=== PATIENT | female | born 1995 | race Caucasian/White ===

== ENCOUNTER 2021-09-11 10:56 | Outpatient (CLI) | payer BC, SELFPAY ==
[2021-09-11 13:15] LABS: Chlamydia DNA Amplified* NOT DETECTED (No Detected); GC DNA Amplified* NOT DETECTED (No Detected)
== END 2021-09-11 10:57 | disposition home or self-care (01) ==
PROVIDERS: Visit Provider Obstetrics & Gynecology
DX: Z34.91 Encounter for supervision of normal pregnancy, unspecified, first trimester (principal); Z3A.11 11 weeks gestation of pregnancy
CPT/HCPCS: 87491; 87591

== ENCOUNTER 2021-11-13 13:45 | Outpatient (CLI) | payer BC, SELFPAY ==
--- NOTE | 2021-11-13 14:00 | CRLHL7_ITS ---
For Patients: As a result of the Century Cures Act, medical imaging exams and procedure reports are released immediately into your electronic medical record. You may view this report before your referring provider. If you have questions, please contact your health care provider. INDICATION: Evaluate anatomy. COMPARISON: 03.15.21 TECHNIQUE: Real time canseco scale imaging of the fetus was performed as well as color Doppler analysis of the umbilical vessels. FINDINGS: Sonographic imaging demonstrates a single living intrauterine gestation. Fetus demonstrates a regular cardiac rate of 171 beats per minute. Fetus has a transverse position, head maternal left. The placenta lies anteriorly without evidence of placenta previa. The edge of the placenta is located 8.8 cm from the internal cervical os. Amniotic fluid volume appears normal. Single deepest vertical pocket: 5.2 cm. The cervix is closed and measures 5.3 cm in length. The composite ultrasound gestational age is calculated at 20 weeks 5 days with an estimated sonographic due date of 03/28/2022. The estimated weight is 401 grams which lies at the 88th %. The following biometric measurements were obtained: Biparietal diameter: 4 point a cm/20 weeks 3 days 58th% Head circumference: 18.3 cm/20 weeks 5 days 61st% Abdominal circumference: 16.0 cm/21 weeks 1 day 70th% Femur length: 3.6 cm/21 weeks 3 days 78th% The HC/AC ratio measures: 1.15 range (1.06-1.25) On anatomic survey, there is a normal appearance of the cerebral ventricles, cavum septi pellucidi, cisterna magna and cerebellum. The nose, lips, and facial profile appear normal. The cervical, thoracic and lumbar spine are well visualized and appear normal. The four-chamber heart view and the left and right ventricular outflow tracts are not well visualized. The diaphragm and stomach appear normal. The kidneys and bladder also appear normal. There is a normal three-vessel cord and cord insertion site. The four extremities appear normal. IMPRESSION: Incomplete visualization of the heart. Short-term follow-up recommended. Remainder of the anatomic survey is normal. Good correlation with dates. Dictated by Twan Mcghee MD @ 11/13/2021 4:10:53 PM (Electronically Signed)
== END 2021-11-13 13:46 | disposition home or self-care (01) ==
LOC: US 13:46
PROVIDERS: Visit Provider Obstetrics & Gynecology
DX: Z34.92 Encounter for supervision of normal pregnancy, unspecified, second trimester (principal); Z3A.20 20 weeks gestation of pregnancy
CPT/HCPCS: 76805

== ENCOUNTER 2021-11-27 10:06 | Outpatient (CLI) | payer BC, SELFPAY ==
--- NOTE | 2021-11-27 10:15 | CRLHL7_ITS ---
For Patients: As a result of the Century Cures Act, medical imaging exams and procedure reports are released immediately into your electronic medical record. You may view this report before your referring provider. If you have questions, please contact your health care provider. INDICATION: f/u heart views not seen on previous exam due to position COMPARISON: 11/13/2021 TECHNIQUE: Real time canseco scale imaging of the fetus was performed. FINDINGS: Sonographic imaging demonstrates a single living intrauterine gestation. Fetus demonstrates a regular cardiac rate of 148 beats per minute. Fetus has a vertex position. The placenta lies anteriorly. Amniotic fluid volume appears normal. Single deepest vertical pocket: 7.5 cm. There is a normal four-chamber heart view and the left and right ventricular outflow tracts appear normal. IMPRESSION: Normal heart views. Dictated by Twan Mcghee MD @ 11/27/2021 12:47:11 PM (Electronically Signed)
== END 2021-11-27 10:07 | disposition home or self-care (01) ==
LOC: US 10:07
PROVIDERS: Visit Provider Obstetrics & Gynecology
DX: Z34.90 Encounter for supervision of normal pregnancy, unspecified, unspecified trimester (principal)
CPT/HCPCS: 76815

== ENCOUNTER 2022-01-08 12:53 | Outpatient (CLI) | payer BC, SELFPAY ==
[2022-01-09 20:26] LABS: Rapid Plasma Reagin (RPR) Non Reactive (Non Reactive)
== END 2022-01-08 12:54 | disposition home or self-care (01) ==
PROVIDERS: Visit Provider Obstetrics & Gynecology
DX: Z34.93 Encounter for supervision of normal pregnancy, unspecified, third trimester (principal); Z3A.28 28 weeks gestation of pregnancy
CPT/HCPCS: 86592

== ENCOUNTER 2022-01-15 14:04 | Outpatient (CLI) | payer BC, SELFPAY ==
[2022-01-15 07:54] LABS: Glucose Fasting Check 92 mg/dl (60-115)
[2022-01-15 12:12] LABS: Glucose GTT-Gestational 3 Hr 67 mg/dl (70-140)
[2022-01-15 12:12] LABS: Glucose 1 Hour Gest 207 mg/dl (70-180)
== END 2022-01-15 14:05 | disposition home or self-care (01) ==
PROVIDERS: Visit Provider Obstetrics & Gynecology
DX: Z34.83 Encounter for supervision of other normal pregnancy, third trimester (principal); Z3A.30 30 weeks gestation of pregnancy
CPT/HCPCS: 82951; 82952

== ENCOUNTER 2022-03-05 09:55 | Outpatient (CLI) | payer BC, SELFPAY ==
[2022-03-06 16:15] LABS: Strep B DNA Probe NEGATIVE (Negative)
[2022-03-06 17:05] LABS: Strep B Pen/Amox Allergy No
== END 2022-03-05 09:56 | disposition home or self-care (01) ==
PROVIDERS: Visit Provider Obstetrics & Gynecology
DX: O36.63X0 Maternal care for excessive fetal growth, third trimester, not applicable or unspecified (principal); Z3A.36 36 weeks gestation of pregnancy
CPT/HCPCS: 76816; 87081; 87653

== ENCOUNTER 2022-03-29 17:16 | Inpatient (IN) | payer BC, SELFPAY ==
[2022-03-29] VITALS (23 sets, daily range): BP systolic 116–138; BP diastolic 54–88; PULSE 62–103; TEMP 36.4–36.8; O2SAT 97–100; BMI 38.4
[2022-03-29 18:43] LABS: SARS PCR* Negative SARS-CoV-2 (Negative)
--- NOTE | 2022-03-29 21:03 | PM.OBHPLI ---
OB - H&P: HPI Labor/Induction History of Present Illness Time Seen by Provider: 18:30 Date Seen: 03/29/22 Chief Complaint: LOF Chief complaint: Maternity Narrative: Fabi Loya is a 26 year old female G1 who presents to labor and delivery due to gross ROM. Her water broke and 4pm and she's regularly areli every 3-4 minutes. Patient is in spontaneous labor. + movements. Denies vaginal bleeding. Please review H&P by Dr. Syed on 03/11 for full history. Review of Systems Status of ROS: Reports: 10 or more systems reviewed and unremarkable except as noted in History and below Meds Home Medications and Allergies Home Medications Medication Instructions Recorded Confirmed Type 103-folic acid 400 tab PO 10/09/21 03/29/22 History mcg-omeg3 32.5 mg-dha-fish oil chew tablet ( with DHA and Folic Acid) aspirin 81 mg chewable tablet 81 mg PO QDAY 12/11/21 03/29/22 History Allergies Allergy/AdvReac Type Severity Reaction Status Date / Time No Known Allergies Allergy Unknown Verified 03/29/22 09:32 OB - H&P: Exam Physical Exam: Vital signs: Temp Pulse BP 97.7 F 62 136/84 03/29/22 20:30 03/29/22 19:14 03/29/22 19:14 Narrative: Physical exam: General: Wincing and breathing through contractions Psych: Alert and oriented x3, full affect HEENT: Normocephalic, atraumatic Abdomen: Gravid, soft, no tenderness, rebound, or guarding in between contractions. Lower extremities: No edema or erythema Pelvic exam: 1.5/75/-2. hair palpated. OB - Problem Based A/P Additional Plan (1) : Status: Acute Plan - Patient in spontaneous labor. SROM at 1600 on 03/29 - Declined Pitocin for now. Will reassess as needed - Pain management: Epidural
[2022-03-29] MEDS: fentaNYL 100 MCG/2 ML inj IVP (22:14)
[2022-03-29] MEDS: LACTATED RINGERS 1000 ML 1,000 ML 1025 ML IV ×2 (22:30→23:19)
[2022-03-29] MEDS: fentaNYL 250 MCG/5 ML inj 100 MCG EPIDURAL (23:00)
[2022-03-29] MEDS: ROPIVACAINE 0.2% 100 ml 100 ML 12 MG EPIDURAL (23:04)
[2022-03-29] MEDS: LIDOCAINE 2% (PF) 5 ML VIAL EPIDURAL (23:04)
--- NOTE | 2022-03-29 23:18 | PM.ANBPRC ---
[facility] Medical History (Updated 03/25/22 @ 10:47 by CARA Zee) Counseling on health care directive Large for dates complicating in third trimester, antepartum Social History Smoking Status: Never smoker Meds Home Medications and Allergies Home Medications Medication Instructions Recorded Confirmed Type 103-folic acid 400 tab PO 10/09/21 03/29/22 History mcg-omeg3 32.5 mg-dha-fish oil chew tablet ( with DHA and Folic Acid) aspirin 81 mg chewable tablet 81 mg PO QDAY 12/11/21 03/29/22 History Allergies Allergy/AdvReac Type Severity Reaction Status Date / Time No Known Allergies Allergy Unknown Verified 03/29/22 09:32 Results Labs Labs: Laboratory Results - last 24 hr 03/29/22 17:13 SARS-CoV-2 (PCR) Negative SARS-CoV-2 Vital Signs Vital Signs: Last Vital Signs Temp 97.6 F 03/29/22 22:30 Pulse 73 03/29/22 23:15 BP 121/75 03/29/22 23:15 Pulse Ox 100 03/29/22 23:08 Weight: 101.559 kg Height: 162.56 cm Anesthesia Procedures Epidural Insertion Patient Location: OB Start Time: 22:15 Stop Time: 23:15 Start Date: 03/29/22 Stop Date: 03/29/22 Reason for Block: primary anesthetic Patient Position: sitting Performed By: Kalen Clifton Preanesthetic Checklist: IV checked, risks and benefits discussed, surgical consent, monitors and equipment checked, pre-op evaluation, timeout performed and anesthesia consent Prep: chlorhexidine gluconate Monitoring: blood pressure monitoring, quality assurance monitor chassis, continuous pulse oximetry and heart rate Approach: midline Vertebral Space: lumbar (1-5) Needle Type: Tuohy needle Injection Technique: continuous catheter Needle gauge: 17 Needle Length (cm): 10 cm Needle Insertion Depth (cm): 6 Catheter Gauge: 19 Catheter Type: multi-orifice Catheter at skin depth (cm): 12 Test Dose Result: negative and lidocaine 1.5% with epinephrine 1 to 200,000 Events: other
[2022-03-30] VITALS (46 sets, daily range): BP systolic 99–147; BP diastolic 53–87; PULSE 70–115; RESP 16–18; TEMP 36.6–37.2; O2SAT 94–98
[2022-03-30 00:15] LABS: Basophils Percent Auto 0.1 % (0.0-3.0); Hematocrit 36.2 % (33.0-51.0); Hemoglobin* 12.2 gm/dL (12.0-16.0); Immature Granulocytes Pct Auto 1.4 %; Lymphocytes Percent Auto 4.7 % (20-44); Mean Corpuscular HGB Conc 34 gm/dL (32-36); Mean Corpuscular Hemoglobin 29 pg (26-34); Mean Corpuscular Volume 86 fL (80-100); Monocytes Percent Auto 4.5 % (0.0-11.0); Neutrophils Percent Auto 89.3 % (42.0-72.0); Platelet Count* 176 K/uL (140-440); RDW Coefficient of Variation % 13.4 % (11.5-15.5)
[2022-03-30 00:17] LABS: Slide Review Reflex No
[2022-03-30] MEDS: ROPIVACAINE 0.2% 100 ml 100 ML 12 MG EPIDURAL (05:45)
[2022-03-30] MEDS: OXYTOCIN 30 unit/500 ML in NS 30 UNIT/500 ML BAG 325 UNIT IVPB (07:18)
--- NOTE | 2022-03-30 08:13 | PM.OBPRCVD ---
Procedure Delivery date: 03/30/22 Procedure Done: Global Procedure Details: The patient is a 26 year-old G 1 P 1001 admitted on 03/30/2022 at 39 Weeks, 6 Days gestation in labor for delivery.? Cervical exam on admission was 1.5 cm/75 % effaced/-2 station with membranes ruptured in vertex presentation.? Contractions were every 3-5 minutes.? heart rate demonstrated a category 1 tracing.? SROM occurred at 16 30 with clear fluid. ? Labor Analgesia:? Epidural ? Pitocin:? No ? Labor onset:? 2329 ? Complete:? 639 ? Pushing:? 48 ? heart tones during second stage were category 2. heart rate seen to be at the high 80s to 100s with head . ? At 0718 a viable male delivered in vertex LUCIAN presentation over intact perineum via spontaneous vaginal delivery.? was placed on maternal abdomen.? Cord was clamped and cut after a 30-60 second delay.? Nose and mouth were bulb suctioned.? weight pending.? 8 at 1 minute and 9 at 5 minutes.? Shoulder dystocia: No.? Nuchal cord: Yes x1. ? Placenta delivered spontaneously and complete at 0723 with a 3 vessel cord. ? Mother and infant were stable after delivery. ? Lacerations:? Second-degree, repaired with multiple layers of Vicryl 3-0. ? Blood loss: 450 mL. Blood loss measurement type: QBL ? Sponge and needles counts are correct. [place] Gender: Male
[2022-03-30] MEDS: IBUPROFEN 600 MG TABLET PO ×3 (08:37→21:19)
[2022-03-30] MEDS: DOCUSATE SODIUM 100 MG CAPSULE PO (12:28)
[2022-03-30] MEDS: ACETAMINOPHEN 500 MG TABLET 1000 MG PO ×2 (12:28→18:14)
[2022-03-31] MEDS: ACETAMINOPHEN 500 MG TABLET 1000 MG PO (00:10)
[2022-03-31 00:46] VITALS: BP 128/87; PULSE 67; RESP 16; TEMP 36.7; O2SAT 97
[2022-03-31 04:03] VITALS: BP 128/82; PULSE 65; RESP 14; TEMP 36.5; O2SAT 99
[2022-03-31] MEDS: IBUPROFEN 600 MG TABLET PO (04:09)
[2022-03-31 07:39] LABS: Hemoglobin* 10.2 gm/dL (12.0-16.0)
[2022-03-31 08:00] VITALS: BP 115/76; PULSE 65; RESP 14; TEMP 36.5; O2SAT 99
--- NOTE | 2022-03-31 08:27 | PM.OBDSVD1 ---
DS: Providers Provider Date Seen: 03/31/22 Date of admission: 03/29/22 17:16 Primary care physician: Not a Local Provider Admitting Clinician: Марина Vinson MD Attending Physician on discharge: Kelli Kiser CNM, Caesar TAMAYO DS: Diagnosis Discharge Diagnosis (1) care and examination immediately after delivery: Status: Acute (2) Normal vaginal delivery: Status: Acute Exam Narrative: Exam Narrative: GENERAL APPEARANCE:? normal affect, alert, no distress? MOOD:? appropriate? CHEST:? clear to auscultation? HEART:? regular rate and rhythm? ABDOMEN:? soft, non-tender the uterine fundus is firm At Umbilicus, Midline and is appropriate for the stage of recovery.? PERINEUM:? mild edema of the perineum, there is a Perineal Laceration,? second degree, that is healing well.? EXTREMITIES:? normal and trace edema? Const: Vital Signs, click to edit/add: Vital Signs - 24 hr 03/30/22 08:40 03/30/22 08:56 03/30/22 09:10 Temperature Pulse Rate 85 83 82 Pulse Rate [Pulse Oximeter] Respiratory Rate Blood Pressure 115/70 132/60 113/65 Blood Pressure [Ri ght Arm] Pulse Oximetry Oxygen Delivery Me thod 03/30/22 12:32 03/30/22 15:07 03/30/22 20:01 Temperature 98.4 F 98.6 F 98.2 F Pulse Rate Pulse Rate [Pulse Oximeter] 81 73 71 Respiratory Rate 16 16 16 Blood Pressure Blood Pressure [Ri ght Arm] 123/73 124/82 117/82 Pulse Oximetry 97 98 97 Oxygen Delivery Me thod Room Air Room Air Room Air 03/31/22 00:46 03/31/22 04:03 03/31/22 08:00 Temperature 98.0 F 97.7 F 97.7 F Pulse Rate Pulse Rate [Pulse Oximeter] 67 65 65 Respiratory Rate 16 14 14 Blood Pressure Blood Pressure [Ri ght Arm] 128/87 128/82 115/76 Pulse Oximetry 97 99 99 Oxygen Delivery Me thod Room Air Room Air Room Air OB - DS: Summary Hospital Course Hospital Course: The patient is a 26 year old G 1 P 1 at 39 5/7 weeks gestation that was admitted to the Center on 03/29/22 for labor. She had an uncomplicated vaginal delivery. She delivered a viable male . She is bottle feeding. the patient has done well. The pain is well controlled with current medications.? She has no new complaints.? Urinary output is adequate and she is voiding without difficulty.? Has a good appetite, is tolerating a general diet, is passing flatus, and has not yet had a bowel movement.? Has scant amount of rubra lochia.? She is ambulating well. Is undecided about control at this time, plans to use condoms for now. Peripartum Data delivery method: Vaginal Laceration description: Perineal - 2nd Degree Gender: Male Discharge Plan: Home Status at Discharge Functional status at discharge: independent ambulation Overall status at discharge: patient is progressing back to baseline Time Spent with Patient Time attestation: Total time spent providing and/or coordinating discharge services: Discharge Plan Discharge Disposition: Home, Self-Care Date of Admission: 03/29/22 17:16 Attending Provider on Discharge: Kelli Kiser Primary Care Provider: Provider,Not a Local Condition: Stable Anticipated Discharge Date/Time: 03/31/22 12:00 Discharge Medications: New acetaminophen 500 mg Tablet 1,000 mg PO Q6H PRNQty: 0 0RF docusate sodium 100 mg Capsule 100 mg PO DAILY Qty: 90 0RF ibuprofen 600 mg Tablet 600 mg PO Q6H PRNQty: 60 0RF Continued with DHA-Folic Acid 400-32.5 mcg-mg tablet,chewable PO Discontinued aspirin 81 mg tablet,chewable 81 mg PO QDAY Discharge Orders: Discharge Order (Routine); Ordered 03/31/22 Ordered By: Kelli Kiser Consulting provider completed their portion of the discharge: No Patient Education: OB Vaginal/Bottle Feeding Additional Instructions: Discharge instructions were reviewed with the patient including signs and symptoms of infection and home going medications Nothing vaginally for 6 weeks: no tampons or intercourse Off Work or School for 8 weeks 2-week visit: discuss infant feeding concerns, review control options and screen for anxiety/depression. 6-week visit for an annual exam. consultation services are available to all mothers and babies for the first year after delivery.? To make an appointment, please call [phone]. Activity Level: Activity as Tolerated Discharge Diet: Regular Follow Up Appointments: [facility] [Provider Group] Forms: [employer] Info Instructions
[2022-03-31] MEDS: DOCUSATE SODIUM 100 MG CAPSULE PO (08:56)
== END 2022-03-31 11:06 | disposition home or self-care (01) | DRG 560 ==
LOC: OB OUT 17:17 → OB 18:08
PROVIDERS: Obstetrics & Gynecology; Admitting Provider Obstetrics & Gynecology; Visit Provider Obstetrics & Gynecology
DX: O42.02 Full-term premature rupture of membranes, onset of labor within 24 hours of rupture (principal); O70.1 Second degree perineal laceration during delivery; Z3A.39 39 weeks gestation of pregnancy; Z37.0 Single live birth
CPT/HCPCS: 01967; 36415; 85018; 85025; 86850; 86900; 86901; 87635; 99213; A9270; J2795; J3010; J7120

== ENCOUNTER 2022-04-21 10:54 | Emergency (ER) | payer BC, SELFPAY ==
[2022-04-21 11:03] VITALS: BP 117/85; PULSE 83; RESP 16; TEMP 36.6; O2SAT 96; BMI 32.6
--- NOTE | 2022-04-21 11:25 | ED_ITS ---
HPI - Dizziness General Time Seen by Provider: 11:25 Date Seen: 04/21/22 Chief Complaint: Dizziness/Vertigo Stated Complaint: Dizzy Time Seen by Provider: 04/21/22 11:25 Source: patient, RN notes reviewed and old records reviewed Mode of arrival: ambulatory Limitations: no limitations History of Present Illness HPI Narrative: Jose is a very pleasant 26-year-old female who is 3 weeks from giving vaginally to her 1st baby. That went well. She comes in today because 3 days ago she noticed the onset of some lightheadedness especially when she would stand up. This was associated with difficulty walking and a little unsteadiness. She denies any weakness at this time and the unsteadiness was bilateral. She notes what is most peculiar is that she is having difficulty talking. She knows what she wants to say but it will come out with different words. Her states that she gets very frustrated. He states that the words are out of order and have nothing to do with the conversation that they originally having. This is happening frequently. Patient denies any recent fever or chills. She states that she had a slight cough 2 weeks ago but this has resolved. She notes that her legs were hurting last night but denies a history of DVT shortness of breath or swelling of the legs. She notes no family history of blood clots. She denies dysuria hematuria. She still has some vaginal discharge but notes no follow order or abdominal pain. She has not suffered any recent trauma or falls. This is never happened to her in the past. She states that maybe she has a slight headache but only after my questions. She notes that this is in the middle of her head. She denies any neck pain history of migraines nausea or vomiting. Related Data Previous Rx's Medication Instructions Recorded docusate sodium 100 mg capsule 100 mg PO DAILY #90 caps 03/31/22 ibuprofen 600 mg tablet 600 mg PO Q6H PRN #60 tabs 03/31/22 Allergies Allergy/AdvReac Type Severity Reaction Status Date / Time No Known Allergies Allergy Unknown Verified 04/13/22 12:45 Review of Systems Status of ROS: Reports: 10 or more systems reviewed and unremarkable except as noted in History and below Const: Denies: fever, chills or fatigue Eyes: Denies: change in vision, blurry vision or light sensitivity ENMT: Denies: throat pain, neck pain, throat swelling, difficulty swallowing or vertigo Cardio: Reports: lightheadedness; Denies: chest pain, palpitations, swelling of feet/ankles or shortness of breath with exertion Resp: Denies: shortness of breath GI: Denies: abdominal pain, nausea, vomiting, diarrhea or difficulty swallowing : Denies: painful urination, urinary frequency or vaginal odor Musculo: Reports: extremity pain; Denies: back pain, neck pain or extremity swelling Integ/Breast: Denies: rash, itching or redness Neuro: Reports: headache (Very mild), lack of coordination (When walking) and difficulty communicating thoughts; Denies: numbness in extremities, weakness in extremities, vertigo, confusion, seizure-like activity or involuntary movements Endo: Denies: fatigue Allergy/Immuno: Denies: throat swelling PFSH [facility] Medical History Counseling on health care directive Large for dates complicating in third trimester, antepartum Normal vaginal delivery Social History Smoking Status: Never smoker Non-prescribed substance use: denies use Little interest or pleasure in doing things: not at all Feeling down, depressed, or hopeless: not at all Exam Narrative: Exam Narrative: Jose is alert and oriented. She is in room 3. EOM is full and pupils are equal round and reactive. GCS of 15. Eyebrow raise smile symmetrical. Questionable slight deviation of tongue to the right. However patient is able to move tongue side to side. Head is atraumatic normocephalic. Neck is supple with no midline tenderness. No lymphadenopathy. Heart with regular rate and rhythm. Lungs are clear to auscultation. Abdomen is soft nontender. Lower extremities without edema. Romberg is negative. Finger to nose intact bilaterally. Patient able to follow multiple step commands. Able to raise legs off bed individually and kick my hand where over that hand is placed. During this time patient is experiencing difficulty with speech. Her sentence will start off appropriately but then she will stutter or not be able to continue to express her thoughts. Occasionally word that would not fit this particular contacts will be stated. Patient is immediately frustrated. NIH SS- Const: Vital Signs, click to edit/add: Vital Signs - 24 hr 04/21/22 11:03 04/21/22 12:30 04/21/22 13:22 Temperature 97.9 F Pulse Rate Pulse Rate [Pulse Oximeter] 83 70 Pulse Rate [orthos tatic lying Pulse Oximeter] 76 Pulse Rate [orthos tatic sitting Puls e Oximeter] 92 Pulse Rate [orthos tatic standing Pul se Oximeter] 99 Respiratory Rate 16 16 Blood Pressure [Ri ght Upper Arm] 117/85 112/75 Blood Pressure [or thostatic lying] 118/75 Blood Pressure [or thostatic sitting] 114/82 Blood Pressure [or thostatic standing ] 107/81 Pulse Oximetry 96 Oxygen Delivery Me thod Room Air 04/21/22 15:50 04/21/22 16:00 04/21/22 16:15 Temperature Pulse Rate 73 85 75 Pulse Rate [Pulse Oximeter] Pulse Rate [orthos tatic lying Pulse Oximeter] Pulse Rate [orthos tatic sitting Puls e Oximeter] Pulse Rate [orthos tatic standing Pul se Oximeter] Respiratory Rate Blood Pressure [Ri ght Upper Arm] Blood Pressure [or thostatic lying] Blood Pressure [or thostatic sitting] Blood Pressure [or thostatic standing ] Pulse Oximetry 98 97 97 Oxygen Delivery Me thod Documenting provider has reviewed patient's vital signs: yes Eye: Direct Ophthalmoscopy: no photophobia Course Course Hospital Course: Differential diagnosis does include stroke, infection, increased intracranial bleed, depression anxiety, orthostatic hypotension. Will obtain head CT as well as labs to include CBC comprehensive panel EKG COVID swab and urinalysis. Suspect that we may need MR and neurology consult. Reevaluation(s) Reevaluation #1: Patient is doing well. Informed of reassuring laboratory values. MRI pending Reevaluation #2: Patient notes no change with treatment with Reglan and Benadryl. Reevaluation #3: Jose think she is somewhat better after the fluids. He has had resolution of the headache and lightheadedness although her speech issues continue. It seems that now her speech issues are more of an initial stutter rather than inappropriate words. Consultations Consultation #1: I had the pleasure of speaking with Dr. Les rogers neurologist at [facility]. At this time will proceed with MRI. Also will use Reglan 10 mg IV piggyback and Benadryl 50 mg along with 1 L normal saline to see if this is perhaps an atypical migraine. Patient accepting of this plan. Vital Signs Vital signs: Initial Vital Signs Temperature 97.9 F 04/21/22 11:03 Temperature Source Temporal Artery Scan 04/21/22 11:03 Pulse Rate 83 04/21/22 11:03 Pulse Rhythm 04/21/22 11:03 Respiratory Rate 16 04/21/22 11:03 Blood Pressure 117/85 04/21/22 11:03 Blood Pressure Mean 95 04/21/22 11:03 Pulse Oximetry 96 04/21/22 11:03 Oxygen Delivery Method 04/21/22 11:03 Vital Signs Temperature 97.9 F 04/21/22 11:03 Pulse Rate 83 04/21/22 11:03 Respiratory Rate 16 04/21/22 11:03 Blood Pressure 117/85 04/21/22 11:03 Pulse Oximetry 96 04/21/22 11:03 Oxygen Delivery Method 04/21/22 11:03 Temperature 97.9 F 04/21/22 11:03 Pulse Rate 75 04/21/22 16:15 Respiratory Rate 16 04/21/22 13:22 Blood Pressure 112/75 04/21/22 13:22 Pulse Oximetry 97 04/21/22 16:15 Oxygen Delivery Method 04/21/22 11:03 MDM - Dizziness MDM Narrative Medical decision making narrative: 1. Speech deficit-fortunately CT and MRI are all reassuring and normal. Patient initially with very mild headache but no photophobia did have resolution of her headache while she was here. I do not have explanation for her speech abnormality at this time. I did attempt to contact Neurology but have not heard back from him at this point will have Jose follow up with her primary MD if this is ongoing and schedule with Neurology. Patient denies any unusual depression, visual hallucinations, sleep deprivation. Labs were all reassuring here today. 2. Disposition-home with her at this time. Will await my phone call if neurology does call. I just contacted Jose at home. Unfortunately did not hear back from Neurology. However, she tells me she is actually doing very well. It sounds like she is not experiencing the speech abnormality that she had before. Certainly could attest to this as I spoke to her on the phone. I would want her to try to get as much rest as possible. I would ask that she follow-up with her primary tomorrow if she is not doing better. I would request that they find in person neurology appointment for her if possible. Patient is advised to return to the emergency room for worsening symptoms and as needed. Medical Records Attestation: I reviewed the patient's medical records. Lab Data Attestation: I reviewed the patient's lab results. Labs: Lab Results 04/21/22 04/21/22 04/21/22 Range/Units 12:25 12:25 12:25 WBC 6.07 (4.50-11.00) K/uL RBC 5.01 (4.00-5.20) m/uL Hgb 14.0 (12.0-16.0) gm/dL Hct 43.6 (33.0-51.0) % MCV 87 (80-100) fL MCH 28 (26-34) pg MCHC 32 (32-36) gm/dL RDW Coeff of Joel 12.9 (11.5-15.5) % Plt Count 326 (140-440) K/uL Neut % (Auto) 63.1 (42.0-72.0) % Lymph % (Auto) 25.2 (20-44) % [place] % (Auto) 7.4 (0.0-11.0) % Eos % (Auto) 3.8 (0.0-7.0) % Baso % (Auto) 0.3 (0.0-3.0) % Neut # (Auto) 3.83 (1.7-7.0) K/uL Lymph # (Auto) 1.53 (0.90-2.90) K/uL [place] # (Auto) 0.40 (0.00-0.90) K/UL Eos # (Auto) 0.23 (0.00-0.50) K/uL Baso # (Auto) 0.02 (0.00-0.30) K/uL Sodium 142 (135-149) mmol/L Potassium 4.3 (3.6-5.1) mmol/L Chloride 110 (96-114) mmol/L Carbon Dioxide 25 (20-32) mmol/L BUN 12 (5-24) mg/dL Creatinine 0.7 (0.5-1.5) mg/dL Estimated Creat Clear 106.09 Estimated GFR 123 ml/min Glucose 94 (60-115) mg/dL Calcium 9.0 (8.4-10.6) mg/dL Total Bilirubin 0.5 (0.1-1.5) mg/dL AST 22 (12-35) U/L ALT 23 (4-35) U/L Alkaline Phosphatase 121 (40-150) U/L C-Reactive Protein 0.8 (0.5-1.0) mg/dL Total Protein 7.5 (6.0-8.3) g/dL Albumin 4.4 (3.3-5.0) g/dL Urine Color (Yellow) Urine Appearance (Clear) Urine pH (5.0-8.5) Ur Specific [place] (1.000-1.030) Urine Protein (Negative) Urine Glucose (UA) (Negative) Urine Ketones (Negative) Urine Blood (Negative) Urine Nitrite (Negative) Urine Bilirubin (Negative) Urine Urobilinogen (0.2-1.0) Ur Leukocyte Esterase (Negative) Urine RBC (0-2) Urine WBC (0-5) Ur Squamous Epith Cells (None-Few) Urine Bacteria (None) SARS-CoV-2 (PCR) (Negative) Influenza Type A (PCR) (Negative) Influenza Type B (PCR) (Negative) RSV (PCR) (Negative) 04/21/22 04/21/22 Range/Units 12:44 13:00 WBC (4.50-11.00) K/uL RBC (4.00-5.20) m/uL Hgb (12.0-16.0) gm/dL Hct (33.0-51.0) % MCV (80-100) fL MCH (26-34) pg MCHC (32-36) gm/dL RDW Coeff of Joel (11.5-15.5) % Plt Count (140-440) K/uL Neut % (Auto) (42.0-72.0) % Lymph % (Auto) (20-44) % [place] % (Auto) (0.0-11.0) % Eos % (Auto) (0.0-7.0) % Baso % (Auto) (0.0-3.0) % Neut # (Auto) (1.7-7.0) K/uL Lymph # (Auto) (0.90-2.90) K/uL [place] # (Auto) (0.00-0.90) K/UL Eos # (Auto) (0.00-0.50) K/uL Baso # (Auto) (0.00-0.30) K/uL Sodium (135-149) mmol/L Potassium (3.6-5.1) mmol/L Chloride (96-114) mmol/L Carbon Dioxide (20-32) mmol/L BUN (5-24) mg/dL Creatinine (0.5-1.5) mg/dL Estimated Creat Clear Estimated GFR ml/min Glucose (60-115) mg/dL Calcium (8.4-10.6) mg/dL Total Bilirubin (0.1-1.5) mg/dL AST (12-35) U/L ALT (4-35) U/L Alkaline Phosphatase (40-150) U/L C-Reactive Protein (0.5-1.0) mg/dL Total Protein (6.0-8.3) g/dL Albumin (3.3-5.0) g/dL Urine Color Yellow (Yellow) Urine Appearance Clear (Clear) Urine pH 6.0 (5.0-8.5) Ur Specific [place] >= 1.030 (1.000-1.030) Urine Protein Negative (Negative) Urine Glucose (UA) Negative (Negative) Urine Ketones Negative (Negative) Urine Blood 3+ A (Negative) Urine Nitrite Negative (Negative) Urine Bilirubin Negative (Negative) Urine Urobilinogen 0.2 (0.2-1.0) Ur Leukocyte Esterase 1+ A (Negative) Urine RBC 5-10 A (0-2) Urine WBC 10-25 A (0-5) Ur Squamous Epith Cells Few (None-Few) Urine Bacteria Few A (None) SARS-CoV-2 (PCR) Negative SARS-CoV-2 (Negative) Influenza Type A (PCR) Negative PCR FLU A (Negative) Influenza Type B (PCR) Negative PCR FLU B (Negative) RSV (PCR) Negative PCR RSV (Negative) Imaging Data CT scan - head: Attestation: I have reviewed the pertinent imaging results. Radiologist's impression: CSF spaces: Within normal limits for age.? Brain parenchyma: The canseco-white differentiation is normal.? No sign of mass, hemorrhage, or midline shift.? Skull base and calvarium: Trace mucosal thickening paranasal sinuses. The visualized orbits are grossly unremarkable.? No skull fractures.? IMPRESSION: Unremarkable noncontrast head CT. MRI - head: Attestation: I have reviewed the pertinent imaging results. Radiologist's impression: The ventricles and sulci are within normal limits for patient age. No mass effect or midline shift. No parenchymal signal abnormalities. No intracranial hemorrhage or pathologic extra-axial fluid collection. No diffusion restriction to suggest acute infarction. The major arterial flow voids of the skullbase are preserved. The globes are symmetric. Mild ethmoid, left maxillary, and sphenoid sinus mucosal thickening. The mastoid air cells are clear. IMPRESSION: Unremarkable noncontrast MRI of the brain. ECG Data Attestation: I personally reviewed and interpreted this ECG as follows: Interpretation: EKGs by my read shows sinus rhythm at a rate between 65 and [address] or T-wave changes noted Discharge Plan Discharge Clinical Impression: Intermittent lightheadedness, Expressive dysphasia Patient Disposition: Home, Self-Care Condition: Improved Additional Instructions: Rest and increase fluids. Additionally CT and MRI do not show any abnormality to suggest underlying stroke tumor or other issue with the brain. I will call you once I speak to Neurology. Prescriptions: No Action docusate sodium 100 mg Capsule 100 mg PO DAILY Qty: 90 0RF ibuprofen 600 mg Tablet 600 mg PO Q6H PRNQty: 60 0RF Follow Up/Referrals: Provider,Not a Local [Primary Care Provider] - Stand Alone Forms: [email or web address] Info Instructions
--- NOTE | 2022-04-21 11:46 | CRLHL7_ITS ---
For Patients: As a result of the Century Cures Act, medical imaging exams and procedure reports are released immediately into your electronic medical record. You may view this report before your referring provider. If you have questions, please contact your health care provider. INDICATION: Dizzy, difficulty with speech. TECHNIQUE: CT head without contrast. COMPARISON: None. FINDINGS: CSF spaces: Within normal limits for age. Brain parenchyma: The canseco-white differentiation is normal. No sign of mass, hemorrhage, or midline shift. Skull base and calvarium: Trace mucosal thickening paranasal sinuses. The visualized orbits are grossly unremarkable. No skull fractures. IMPRESSION: Unremarkable noncontrast head CT. Please note that all CT scans at this facility use dose modulation, iterative reconstruction, and/or weight-based dosing when appropriate to reduce radiation dose to as low as reasonably achievable. Dictated by Rom Araiza MD @ 04/21/2022 12:56:23 PM (Electronically Signed)
[2022-04-21 12:30] VITALS: BP 107/81; BP 114/82; BP 118/75; PULSE 76; PULSE 92; PULSE 99
[2022-04-21 12:43] LABS: Basophils Absolute Auto 0.02 K/uL (0.00-0.30); Basophils Percent Auto 0.3 % (0.0-3.0); Eosinophils Absolute Auto 0.23 K/uL (0.00-0.50); Eosinophils Percent Auto 3.8 % (0.0-7.0); Hematocrit 43.6 % (33.0-51.0); Immature Granulocytes Abs Auto 0.01 K/uL (0.00-0.30); Immature Granulocytes Pct Auto 0.2 %; Lymphocytes Absolute Auto 1.53 K/uL (0.90-2.90); Lymphocytes Percent Auto 25.2 % (20-44); Mean Corpuscular HGB Conc 32 gm/dL (32-36); Mean Corpuscular Hemoglobin 28 pg (26-34); Mean Corpuscular Volume 87 fL (80-100); Monocytes Percent Auto 7.4 % (0.0-11.0); Neutrophils Absolute Auto 3.83 K/uL (1.7-7.0); Neutrophils Percent Auto 63.1 % (42.0-72.0); Platelet Count* 326 K/uL (140-440); RDW Coefficient of Variation % 12.9 % (11.5-15.5); Red Blood Count 5.01 m/uL (4.00-5.20); White Blood Count* 6.07 K/uL (4.50-11.00)
[2022-04-21 12:47] LABS: Slide Review Reflex No
[2022-04-21 12:57] LABS: Albumin* 4.4 g/dL (3.3-5.0); Chloride* 110 mmol/L (96-114)
[2022-04-21 12:58] LABS: Potassium* 4.3 mmol/L (3.6-5.1); Sodium* 142 mmol/L (135-149)
[2022-04-21 13:00] LABS: Alkaline Phosphatase* 121 U/L (40-150); Aspartate Amino Transferase* 22 U/L (12-35); Bilirubin Total* 0.5 mg/dL (0.1-1.5); Blood Urea Nitrogen* 12 mg/dL (5-24); Carbon Dioxide* 25 mmol/L (20-32); Creatinine* 0.7 mg/dL (0.5-1.5); Est. Creatinine Clearance* 106.09; Estimated Glomerular Filt Rate 123 ml/min; Total Protein* 7.5 g/dL (6.0-8.3)
[2022-04-21 13:01] LABS: Alanine Aminotransferase* 23 U/L (4-35); Glucose* 94 mg/dL (60-115)
[2022-04-21 13:03] LABS: C Reactive Protein* 0.8 mg/dL (0.5-1.0)
[2022-04-21 13:16] LABS: Appearance Urine Clear (Clear); Bilirubin Urine Negative (Negative); Blood Urine 3+ (Negative); Color Urine Yellow (Yellow); Glucose Urine Negative (Negative); Ketones Urine Negative (Negative); Leukocyte Esterase Urine 1+ (Negative); Nitrite Urine Negative (Negative); Protein Urine Negative (Negative); Specific Gravity Urine >= 1.030 (1.000-1.030); Urobilinogen Urine 0.2 (0.2-1.0)
[2022-04-21 13:22] VITALS: BP 112/75; PULSE 70; RESP 16
--- NOTE | 2022-04-21 13:22 | CRLHL7_ITS ---
For Patients: As a result of the Century Cures Act, medical imaging exams and procedure reports are released immediately into your electronic medical record. You may view this report before your referring provider. If you have questions, please contact your health care provider. INDICATION: Problems with expression and word-finding. TECHNIQUE: Multiplanar multisequence noncontrast MR images acquired through the brain. COMPARISON: CT brain 04/21/2022. FINDINGS: The ventricles and sulci are within normal limits for patient age. No mass effect or midline shift. No parenchymal signal abnormalities. No intracranial hemorrhage or pathologic extra-axial fluid collection. No diffusion restriction to suggest acute infarction. The major arterial flow voids of the skullbase are preserved. The globes are symmetric. Mild ethmoid, left maxillary, and sphenoid sinus mucosal thickening. The mastoid air cells are clear. IMPRESSION: Unremarkable noncontrast MRI of the brain. Dictated by Alfonso William MD @ 04/21/2022 5:05:25 PM (Electronically Signed)
[2022-04-21 13:44] LABS: Bacteria Urine Few; Squamous Epithelial Cell Urine Few (None-Few)
[2022-04-21 13:47] LABS: PCR FLU A Negative PCR FLU A (Negative); PCR FLU B Negative PCR FLU B (Negative); PCR RSV Negative PCR RSV (Negative); SARS PCR* Negative SARS-CoV-2 (Negative)
[2022-04-21] MEDS: 0.9 % SODIUM CHLORIDE 1000 ml 1,000 ML IV (13:55)
[2022-04-21] MEDS: diphenhydrAMINE 50 MG/ML inj IVP (13:55)
[2022-04-21] MEDS: METOCLOPRAMIDE HCL 10 MG in 0.9 % SODIUM CHLORIDE 100 ml 100 ML 306 MG IVPB (14:02)
--- NOTE | 2022-04-21 14:32 | ED.NURSE ---
Patient has noted difficulty finding words. I asked if she needed another blanket she replied no and shivered. Clarified this and she says, yes, actually I meant yes.
[2022-04-21 15:50] VITALS: PULSE 73; O2SAT 98
[2022-04-21 16:00] VITALS: PULSE 85; O2SAT 97
[2022-04-21 16:15] VITALS: PULSE 75; O2SAT 97
== END 2022-04-21 18:34 | disposition home or self-care (01) ==
PROVIDERS: Emergency Provider Family Medicine
DX: R42 Dizziness and giddiness (principal); R47.02 Dysphasia
CPT/HCPCS: 36415; 70450; 70551; 80053; 81001; 85025; 86140; 87086; 87502; 87634; 87635; 93005; 96365; 96375; 99284; 99285; J1200; J2765; J7030

== ENCOUNTER 2025-01-25 12:47 | Outpatient (CLI) | payer BC, SELFPAY ==
--- NOTE | 2025-01-25 13:00 | CRLHL7_ITS ---
For Patients: As a result of the Cures Act, medical imaging exams and procedure reports are released immediately into your electronic medical record. You may view this report before your referring provider. If you have questions, please contact your health care provider. OB ULTRASOUND LESS THAN 14 WEEKS CLINICAL HISTORY: Dating and viability. Spotting x 5 days. TECHNIQUE: Transvaginal ultrasound of the pelvis was performed to better evaluate the genitourinary organs such as the ovaries and/or endometrium. FINDINGS: Imaging: Transvaginal. LMP: 11/23/2024. [place] by LMP: 08/30/2025. GA: 9 weeks 0 days. Previous US: No. CRL: Not visualized. FHR: N/A. GEST SAC: 0.3 cm. YOLK SAC: Not visualized. RIGHT OV: WNL 2.5 x 1.8 x 1.4 cm. LEFT OV: WNL 4.4 x 3.3 x 2.8 cm. IMPRESSION: Small focus of fluid within the endometrium is present. This measures 3.4 mm. This would correspond with a 5 week 0 day gestation if this is a gestational sac. No yolk sac or pole. No ectopic. Follow-up in two weeks recommended. Twan Mcghee M.D. Diagnostic Radiologist [email or web address] Transcribed: 3:24 pm DW/Dictated by: Twan Mcghee MD @ 01/25/2025 2:46:00 PM (Electronically Signed)
== END 2025-01-25 12:48 | disposition home or self-care (01) ==
LOC: US 12:50
PROVIDERS: Visit Provider Registered Nurse
DX: O20.9 Hemorrhage in early pregnancy, unspecified (principal); O36.80X0 Pregnancy with inconclusive fetal viability, not applicable or unspecified; Z3A.01 Less than 8 weeks gestation of pregnancy
CPT/HCPCS: 76817

== ENCOUNTER 2025-01-25 14:12 | Outpatient (CLI) | payer OTHER, SELFPAY | END 2025-01-25 14:13 | disposition home or self-care (01) | LOC: NFLDREF 14:13 | PROVIDERS: Visit Provider Registered Nurse | DX: Z34.90 Encounter for supervision of normal pregnancy, unspecified, unspecified trimester (principal) | CPT/HCPCS: 84702 ==

== ENCOUNTER 2025-01-28 08:57 | Outpatient (CLI) | payer OTHER, SELFPAY | END 2025-01-28 08:58 | disposition home or self-care (01) | LOC: NFLDREF 02-02 17:10 | PROVIDERS: Visit Provider Registered Nurse | DX: Z34.90 Encounter for supervision of normal pregnancy, unspecified, unspecified trimester (principal) | CPT/HCPCS: 84702 ==

== ENCOUNTER 2025-02-04 09:40 | Outpatient (CLI) | payer OTHER, SELFPAY | END 2025-02-04 09:41 | disposition home or self-care (01) | LOC: NFLDREF 02-08 06:49 | PROVIDERS: Visit Provider Obstetrics & Gynecology | DX: O03.9 Complete or unspecified spontaneous abortion without complication (principal) | CPT/HCPCS: 84702 ==

== ENCOUNTER 2025-02-11 09:20 | Outpatient (CLI) | payer OTHER, SELFPAY | END 2025-02-11 09:21 | disposition home or self-care (01) | LOC: NFLDREF 02-19 15:17 | PROVIDERS: Visit Provider Obstetrics & Gynecology | DX: O03.9 Complete or unspecified spontaneous abortion without complication (principal) | CPT/HCPCS: 84702 ==